=== PATIENT | female | born 1940 | race Caucasian/White ===

== ENCOUNTER 2018-03-17 08:33 | Inpatient (IN) ==
--- NOTE | 2018-03-02 08:15 | Anesthesiology Consultation ---
Date of Service March 02, 2018 Assessment & Plan (1) Encounter for pre-operative examination: Chart Review Chart Review: Acceptable Risk for Surgery and Patient NOT seen in Pre Admission Testing Per medical oncology, "she certainly has gone through surgeries before without any bleeding complications and from a hematologic perspective, she can safely proceed with her knee surgery without any special perioperative management." Consults Requested none History Surgery Operation Date: 03/17/18 12:50 Proposed Procedures p Right Total Knee Arthroplasty - Isiah Mason MD Height/Weight Height: 4 ft 11 in Weight: 68.039 kg Allergies Allergy/AdvReac Type Severity Reaction Status Date / Time No Known Allergies Allergy Verified 03/01/18 13:05 Medications Home Medications Medication Instructions Recorded Confirmed Last Taken amlodipine 5 mg PO QAM 03/01/18 03/01/18 Unknown aspirin 81 mg PO QAM 03/01/18 03/01/18 Unknown atorvastatin 30 mg PO PM 03/01/18 03/01/18 Unknown carvedilol 25 mg PO BID 03/01/18 03/01/18 Unknown citalopram 30 mg PO HS 03/01/18 03/01/18 Unknown hydrochlorothiazide 25 mg PO QAM 03/01/18 03/01/18 Unknown levothyroxine 88 mcg PO QAM 03/01/18 03/01/18 Unknown losartan 50 mg PO QAM 03/01/18 03/01/18 Unknown nitroglycerin 1 tab SUBLINGUAL DIRECTED PRN 03/01/18 03/01/18 Unknown Past Medical History Medical History Anxiety and depression Asthma Coagulopathy Hx of myocardial infarction 2015 - cardiac cath [facility]- failed - sent to [place] Had bypass done Hx of ventricular tachycardia 2017 - had cardiac ablation - [facility] Hyperlipidemia Hypertension Hypothyroidism On home oxygen therapy uses only at night Sleep apnea Past Surgical History Surgical History History of History of carpal tunnel release of both wrists Hx of arthroscopy of right knee had torn meniscus Hx of heart bypass surgery 2016 -quad bypass -4 vessel - [place] Hx of inguinal hernia repair Hx of lymph node excision x2 Social History Smoking Status: Never smoker Hx Alcohol Use: No Hx Substance Use: No Exercise / Class Metabolic Activity II 4-5 Yardwork/Stairs/Walk up hill Testing Electrocardiogram Date: 09/08/17 Findings: + NSR @ (85 bpm) nonspecific IVCD low voltage Laboratory Results Laboratory Tests 02/28/18 02/28/18 02/28/18 12:48 12:48 12:48 WBC 5.57 Hgb 11.4 L Plt Count 212 PT 10.1 INR 1.0 APTT 38.0 H Sodium 141 Potassium 3.6 Chloride 106 Carbon Dioxide 34 H BUN 24 H Creatinine 0.76 Glucose 96 Hemoglobin A1c 02/28/18 12:48 WBC Hgb Plt Count PT INR APTT Sodium Potassium Chloride Carbon Dioxide BUN Creatinine Glucose Hemoglobin A1c 6.2 H
--- NOTE | 2018-03-16 12:26 | History and Physical Report ---
DATE OF ADMISSION: 03/17/2018 CHIEF COMPLAINT: Right knee pain. HISTORY OF PRESENT ILLNESS: The patient is a 77-year-old female with known osteoarthritis about her right knee. She has had previous corticosteroid injections. She tries to watch her other [id number] medication use due to her cardiac medications. Due to ongoing pain and disability, she now desires to proceed with right total knee arthroplasty. PAST MEDICAL HISTORY: Coronary artery disease, hypertension, hypercholesterolemia, sleep apnea with O2 use at night, asthma, hypothyroidism, skin cancer. PAST SURGICAL HISTORY: , quadruple bypass, cardiac ablation, carpal tunnel, inguinal hernia. MEDICATIONS: Citalopram 20 mg 1 1/2 tablets daily, HCTZ 25 mg daily, Tirosint 88 mcg daily, Nitrostat 0.4 mg sublingual p.r.n. chest pain, atorvastatin 20 mg 1 1/2 daily, aspirin 81 mg daily, amlodipine daily, losartan daily, carvedilol twice daily. ALLERGIES: No known drug allergies. SOCIAL HISTORY AND REVIEW OF SYSTEMS: Noncontributory. PHYSICAL EXAMINATION: GENERAL: Well-nourished, well-developed elderly female who appears her stated age. HEENT: Normocephalic, atraumatic, extraocular movements intact, oropharynx pink and moist. NECK: Supple without adenopathy. LUNGS: Clear to auscultation bilaterally. HEART: Regular rate and rhythm. ABDOMEN: Soft, nontender, nondistended. EXTREMITIES: The upper extremity is within normal limits. The right knee has a varus alignment. Her range of motion is from 0-120 degrees. She has mild crepitus with range of motion. X-RAYS: X-rays were reviewed. She has a varus aligned knee. She has bone-on -bone arthritis of medial compartment with complete loss of joint space. There are medial joint line osteophytes. There are osteophytes about the patellofemoral joint as well. ASSESSMENT: Right knee degenerative joint disease. PLAN: Risks versus benefits were discussed, consent was obtained. The patient's primary care physician is Kendra SPIVEY from Dr. Rawls [facility] in [place]. Her trench pipe layer helper is Dr. Palencia in [place]. Will proceed with right total knee arthroplasty as indicated.
[~2018-03-17 08:33] MED LIST: ACETAMINOPHEN 500 MG TAB PO SCH; BUPIVACAINE 0.5 % 5 MG/1 ML PF 10ML VIAL ONE; CEFAZOLIN 1000MG 1,000 MG/7.5 ML SYR IV SCH; CeleBREX 200 MG CAP PO SCH; EPINEPHrine INJ 1 MG/ML AMP ONE; FAMOTIDINE 20 MG TAB PO SCH; GABAPENTIN 300 MG PO SCH; LR 15ML/HR IV SCH; METOCLOPRAMIDE HCL 10 MG TABLET PO SCH; OXYCODONE HCL 10 MG TABCR (OXYCONTIN) PO SCH; ROPIVACAINE 0.5% 5 MG/ML 30 ML VIAL ONE; ROPIVACAINE 0.5% HCL/PF 150 MG, BUPIVACAINE 0.5% MPF 30 ML, EPINEPHrine 30MG/30ML (OR U... INFIL SCH; dexAMETHasone 4 MG TAB PO SCH
--- NOTE | 2018-03-17 09:05 | History & Physical Bridge Note ---
Date of Service March 17, 2018 History & Physical Bridge Note I have examined the patient, reviewed the History & Physical and in the interval since the performance of the History & Physical I have noted the following changes of clinical significance: no changes noted
[2018-03-17] MEDS ORDERED: fentaNYL citrate 100 MCG/2 ML VIAL IV PRN (09:13)
[2018-03-17] MEDS ORDERED: LABETALOL HCL IV 5 MG/ML 20ML IV PRN (09:13)
[2018-03-17] MEDS ORDERED: PHENYLEPHRINE 100MCG/ML 5ML SYR IV PRN (09:13)
[2018-03-17] MEDS ORDERED: ATROPINE SULFATE 0.1 MG/ML 5ML SYR IV PRN (09:13)
[2018-03-17] MEDS ORDERED: MEPERIDINE HCL 25 MG/ML CARP IV PRN (09:13)
[2018-03-17] MEDS ORDERED: HYDROmorphone INJ 1 MG/ML SYRINGE IV PRN (09:13)
[2018-03-17] MEDS ORDERED: ePHEDrine sulfate 50 MG/ML AMP IV PRN (09:13)
[2018-03-17] MEDS ORDERED: ONDANSETRON INJ 2 MG/ML 2 ML VIAL IV PRN ×2 (09:13→13:09)
[2018-03-17 09:20] LABS: Partial Thromboplastin Ratio 1.4
[2018-03-17] MEDS ORDERED: MIDAZOLAM HCL 1 MG/ML 2ML VIAL ONE (09:34)
[2018-03-17] MEDS ORDERED: fentaNYL citrate 100 MCG/2 ML VIAL ONE (09:34)
[2018-03-17] MEDS ORDERED: BACITRACIN INJ 50,000 UNIT VIAL ONE (09:35)
[2018-03-17] MEDS ORDERED: ORTHO JOINT ANESTHETIC ONE (09:35)
[2018-03-17] MEDS ORDERED: POVIDONE-IODINE OP SOLN 30 ML BTL ONE (09:35)
[2018-03-17] MEDS ORDERED: LIDOCAINE HCL 2% 2 ML VIAL/AMP(20MG/ML) INFIL ONE (10:59)
[2018-03-17] MEDS ORDERED: PROPOFOL IV EMULSION 10 MG/ML 20 ML VIAL IV ONE (10:59)
--- NOTE | 2018-03-17 11:14 | Operative Report ---
Post Operative Report Date of Surgery March 17, 2018 Pre & Post Diagnosis Operation Date: 03/17/18 10:50 Pre-Op Diagnosis: Right Knee Osteoarthritis Post-Op Diagnosis: Right Knee Osteoarthritis Procedure Operation Date: 03/17/18 10:50 Actual Procedures p Right Total Knee Arthroplasty(Right) - Isiah Mason MD Surgeon Isiah Mason MD Chart Clerk Joanna Estimated Blood Loss 10 Findings Consistent with Post-Op Diagnosis Specimens Bone fragments Anesthesia Type Spinal Complications none Disposition Accompanied Patient To Recovery: No Disposition: Recovery Room Indications Knee pain Description of Procedure Patient's right leg was prepped and draped in the usual sterile manner. Limb was exsanguinated with an Esmarch bandage and tourniquet inflated to 300 mils of mercury. Longitudinal incision was made subcutaneous tissue sharply dissected lateral cartilages hemostasis. Medial parapatellar incision was made the patella was everted and the knee was a portion of the fat pad was removed to aid in visualization and the anterior and posterior cruciate ligaments were removed. The proximal tibia was osteotomized at the appropriate level using the oscillating saw. This bone fragment was removed. Next attention turned to the femur was drilled drill was used to get access to the canal. Flexible guide marvin was placed in the distal femoral cuts were made. The notch was cut using the appropriate guide and medial and lateral meniscal remnants were removed using sharp dissection. Trial femur was placed drill for the tip femoral pegs were produced and the tibia was subluxed anteriorly using blunt Hohmann. Proximal tibia was prepared using the drill and the bone tamp trial reduction was carried up to size 9 tibial poly-. Patella was prepared using a size 33 patella knee was taken through range of motion and the patella tracked nicely. All trial components removed the knee was thoroughly irrigated with pulsatile irrigation joint mix was injected and a Betadine soap was utilized from the ear irrigation carried out Hemovac drain was placed and was closed using #1 Vicryl 0 Dexon and is applied. Sterile dressing of Adaptic 4 x 4's sterile umbilicus applied. Was utilized for portion of the case including positioning prepping draping surgical assistance in wound closure and dressing application. I attest to the content of the Intraoperative Record and any orders documented therein. Any exceptions are noted below.
--- NOTE | 2018-03-17 12:16 | XRay Report ---
XR knee RT 2V routine CLINICAL HISTORY: 77 years-old Female presenting with postop. TECHNIQUE: Frontal and crosstable lateral views the right knee were obtained. COMPARISON: None. FINDINGS: Post surgical changes of total right knee arthroplasty with patellar resurfacing. Expected intra-angel cular and soft tissue emphysema. Osteopenia suspected. No periprosthetic fracture. No malalignment. S urgical drain in place. IMPRESSION: Expected postsurgical appearance status post total right knee arthroplasty with patellar resurfacing. Electronically signed by: Sergio Fry M.D. 03/17/2018 12:15 PM
--- NOTE | 2018-03-17 12:16 | Anesthesiology Progress Note ---
Date of Service March 17, 2018 Anesthesia Post Procedure Vital Signs Vital Signs: Temp Pulse Pulse Resp BP Pulse Ox 03/17/18 12:05 36.5 C 68 12 114/62 96 03/17/18 11:55 66 12 110/65 99 03/17/18 11:45 36.3 C L 71 16 109/56 L 99 03/17/18 09:27 36.8 C 66 20 134/67 97 Notes Mental Status: alert / awake / arousable Patient Amnestic to Procedure: Yes Nausea / Vomiting: adequately controlled Pain: adequately controlled Airway Patency, RR, SpO2: stable & adequate BP & HR: stable & adequate Hydration State: stable & adequate Neuraxial Anesthesia: was administered and sensory block is resolving Anesthetic Complications: no major complications apparent and Pt Satisfied with anesthetic care
[2018-03-17] MEDS ORDERED: MAGNESIUM HYDROXIDE SUSP 30 ML UDC PO PRN (13:09)
[2018-03-17] MEDS ORDERED: NITROGLYCERIN SL 0.4 MG/TAB TAB SL PRN (13:09)
[2018-03-17] MEDS ORDERED: ALUMINUM/MAGNESIUM SUSP 30 ML UDC PO PRN (13:09)
[2018-03-17] MEDS ORDERED: METOCLOPRAMIDE HCL INJ 5 MG/ML 2 ML VIAL IV PRN (13:09)
[2018-03-17] MEDS ORDERED: MoRPHine SULFATE 2 MG/ML CARP IV PRN (13:09)
--- NOTE | 2018-03-17 14:12 | Consultation ---
Date of Consultation March 17, 2018 Assessment & Plan (1) S/P total knee arthroplasty: - Continue pain control, dvt ppx, and bowel regimen per primary team - PT/OT consuls - Follow am cbc for hgb with acute blood loss - CM to assist with dc planning (2) Benign essential HTN: - Continue carvedilol 25 mg PO BID, HCTZ 245 mg daily, losartan 50 mg QAM , (3) HLD (hyperlipidemia): - Cont statin therapy (4) Hx of myocardial infarction: - Occurred in 2015, resolved. - S/p quadruple bypass surgery - Follows with Cardiology in [place] (5) History of quadruple bypass: (6) Ventricular tachycardia: - 2017 and now s/p cardiac ablation (7) H/O cardiac radiofrequency ablation: (8) Asthma: stable, - Wears 2 L via NC HS at baseline. (9) Hypothyroidism: - Cont levothyroxine 88 mcg daily (10) DVT prophylaxis: - teds, scds, aspirin 81 mg BID Supervising Physician Co-Signing Physician Notes Patient seen and examined, chart reviewed, case discussed with MAO Hanna and I agree with her assessment and plan as documented above. Briefly, patient is a 77yo female with history of CAD s/p CABG x 4v, VT s/p ablation, s/p right TKA performed today 03/17/18. Procedure well tolerated. Patient presently denies pain. She had some mild nausea which has resolved. She ambulated to the restroom with assistance without difficulty. Tolerated dinner. No additional complaints at this time. She has no CP, SOB, palpitations. Exam unremarkable. +S1/S2, regular, no m/r/g. Sensation of LE intact, 2+ pulses, 5+ strength Labs and images reviewed. Plan as above. History of Present Illness Reason for Consultation: Medical management Requesting Physician: Dr. Mason Attending Physician: Isiah Mason MD History of Present Illness This is a 77 yo F with PMHx of HTN, HLD, hx of MN in 2016 s/p cardiac cath and CABG, Vtach in 2017 s/p cardiac ablation, HLD, hypothyroidism, coagulopathy, asthma, THI on O2 HS, hypothyroidism, anxiety and depression who presented for elective R TKA by dr. Mason on 03/17/18. The patient was seen and examined and doing well currently, other than she feels groggy still. She has very mild pain coming back into the R knee, no numbness and tingling. She has not figured out her plan for outpatient PT after hospitalization. Allergies Allergy/AdvReac Type Severity Reaction Status Date / Time No Known Allergies Allergy Verified 03/17/18 09:05 Home Medications Home Medications Medication Instructions Recorded Confirmed Type amlodipine 5 mg PO QAM 03/01/18 03/17/18 History aspirin 81 mg PO QAM 03/01/18 03/17/18 History atorvastatin 30 mg PO PM 03/01/18 03/17/18 History carvedilol 25 mg PO BID 03/01/18 03/17/18 History citalopram 30 mg PO HS 03/01/18 03/17/18 History hydrochlorothiazide 25 mg PO QAM 03/01/18 03/17/18 History levothyroxine 88 mcg PO QAM 03/01/18 03/17/18 History losartan 50 mg PO QAM 03/01/18 03/17/18 History nitroglycerin 1 tab SUBLINGUAL DIRECTED PRN 03/01/18 03/17/18 History Patient History Medical History Hypothyroidism Asthma Ventricular tachycardia Hx of myocardial infarction HLD (hyperlipidemia) Benign essential HTN Anxiety and depression Asthma Coagulopathy Hx of myocardial infarction 2016 - [facility] - sent to [place] Had bypass done Hx of ventricular tachycardia 2017 - had cardiac ablation - [facility] Hyperlipidemia Hypertension Hypothyroidism On home oxygen therapy uses only at night Sleep apnea Surgical History History of quadruple bypass S/P total knee arthroplasty H/O cardiac radiofrequency ablation History of History of carpal tunnel release of both wrists Hx of arthroscopy of right knee had torn meniscus Hx of heart bypass surgery 2016 -quad bypass -4 vessel - [place] Hx of inguinal hernia repair Hx of lymph node excision x2 Social History Current Living Situation: Spouse Other Information That Helps Us Care for You: No Feels Safe at Home: Yes Safety Concerns: Feels Safe At This Time Smoking Status: Never smoker Hx Alcohol Use: No Hx Substance Use: No Beliefs That Will Affect Care: None Preferred Language: Danish Communication Ability: Effective Review of Systems Constitutional: No fever, sweats or chills, + fatigue Eyes: No diplopia, no worsening or blurred vision ENT: normal hearing, no trouble swallowing Respiratory: No cough, sputum, dyspnea at rest or on exertion Cardiovascular: No chest pain, tightness or palpitations Abdomen: No pain, nausea, vomiting, diarrhea or constipation Musculoskeletal: Minimal R knee pain, otherwise no joint pain, calf pain, swelling Neurologic: No weakness, numbness/tingling, or balance problems Psychiatric: No anxiety or depression Skin: No rash or itch Physical Exam 2 Vital Signs (Past 24 Hours): Last Vital Signs Temp 36.5 C 03/17/18 13:05 Pulse 66 03/17/18 13:31 Resp 18 03/17/18 13:31 BP 101/64 03/17/18 13:31 Pulse Ox 97 03/17/18 13:31 Physical Exam: General: awake, alert, no apparent distress, + obese Head: Normocephalic, atraumatic ENT: PERRL, EOMI, no pharyngeal exudate, mucous membranes moist Chest: Clear to auscultation, on 2L via NC, no adventitious breath sounds Cardiac: Regular rate and rhythm, no murmur, no JVD, normal peripheral pulses, good capillary refill Abdominal: NABS x 4 quadrants, soft, nontender to palpation, no rebound, guarding or tenderness Extremities: R knee with icepack on, dressing c/d/i, hemovac in place, otherwise normal inspection, no peripheral edema or erythema, calfs nontender to palpation Psych: Normal mood and affect Neuro: AAO x 3, strength intact bilaterally and related 5/5, no motor deficits, speech is clear, no peripheral sensory deficits
[2018-03-17] MEDS: KETOROLAC TROMETHAMINE 15 MG/ML VIAL IV SCH ×2 (16:32→21:45)
[2018-03-17] MEDS: SODIUM CHLORIDE 0.9% 1000ML 1,000 ML IV SCH (17:23)
[2018-03-17] MEDS: ACETAMINOPHEN 500 MG TAB PO SCH (17:39)
[2018-03-17] MEDS: FERROUS GLUCONATE 324 MG TAB PO SCH (17:39)
[2018-03-17] MEDS: CEFAZOLIN 1000MG 1,000 MG/7.5 ML SYR IV SCH (17:40)
[2018-03-17] MEDS: DOCUSATE SODIUM 100 MG CAP PO SCH (20:26)
[2018-03-17] MEDS: ATORVASTATIN 10 MG TAB PO SCH (20:26)
[2018-03-17] MEDS: CITALOPRAM 20 MG TAB PO SCH (20:26)
[2018-03-17] MEDS: ASPIRIN 81 MG ECTAB PO SCH (20:26)
[2018-03-17] MEDS: CARVEDILOL 25 MG TAB PO SCH (20:31)
[2018-03-18] MEDS: SODIUM CHLORIDE 0.9% 1000ML 1,000 ML IV SCH ×3 (00:12→20:28)
[2018-03-18] MEDS: ACETAMINOPHEN 500 MG TAB PO SCH ×3 (01:55→17:39)
[2018-03-18] MEDS: CEFAZOLIN 1000MG 1,000 MG/7.5 ML SYR IV SCH (01:56)
[2018-03-18] MEDS: KETOROLAC TROMETHAMINE 15 MG/ML VIAL IV SCH (04:12)
[2018-03-18] MEDS: LEVOTHYROXINE SODIUM 88 MCG TABLET PO SCH (05:40)
[2018-03-18 07:40] LABS: Hematocrit (blood only) 25.3 % (37-47); Hemoglobin 8.3 g/dL (12.0-16.0); Mean Corpuscular Hgb Conc 32.8 g/dL (32-36); Mean Corpuscular Volume 96.9 fL (80-100); Mean Platelet Volume 10.2 fL (7.4-10.4); Platelet Count 168 K/uL (130-400); RDW Coefficient of Variation 14.4 % (11.5-14.5); RDW Standard Deviation 51.4 fL (36.4-46.3); Red Blood Count 2.61 M/uL (4.2-5.4); White Blood Count 14.37 K/uL (4.8-10.8)
[2018-03-18] MEDS ORDERED: dexAMETHasone 10 MG in SYRINGE 0 ML IV SCH (08:00)
[2018-03-18 08:17] LABS: BUN Creatinine Ratio 26.8 (10-20); Calcium 7.9 mg/dl (8.5-10.1); Creatinine Clr Calc Pharmacy 26.7 ml/min; Est GFR (African American) 36.7; Est GFR (Non-African American) 31.7; Potassium 4.3 mmol/L (3.5-5.1)
[2018-03-18] MEDS: AMLODIPINE BESYLATE 5 MG TAB PO SCH (09:16)
[2018-03-18] MEDS: PANTOprazole 40 MG TAB PO SCH (09:18)
[2018-03-18] MEDS: FERROUS GLUCONATE 324 MG TAB PO SCH ×3 (09:18→17:39)
[2018-03-18] MEDS: ATORVASTATIN 10 MG TAB PO SCH (09:18)
[2018-03-18] MEDS: MULTIVITAMIN TAB PO SCH (09:18)
[2018-03-18] MEDS: CITALOPRAM 20 MG TAB PO SCH (09:18)
[2018-03-18] MEDS: LOSARTAN POTASSIUM 50 MG TAB PO SCH (09:18)
[2018-03-18] MEDS: CARVEDILOL 25 MG TAB PO SCH ×2 (09:19→21:36)
[2018-03-18] MEDS: hydroCHLOROthiazide 25 MG TAB PO SCH (09:19)
[2018-03-18] MEDS: DOCUSATE SODIUM 100 MG CAP PO SCH ×2 (09:20→21:35)
[2018-03-18] MEDS: ASPIRIN 81 MG ECTAB PO SCH ×2 (09:20→21:36)
--- NOTE | 2018-03-18 10:26 | Anesthesiology Progress Note ---
Date of Service March 18, 2018 Anesthesia Post Procedure Vital Signs Vital Signs: Temp Pulse Pulse Resp BP BP Pulse Ox 03/18/18 07:31 36.4 C L 74 16 118/78 94 03/18/18 03:09 36.4 C L 69 16 97/58 L 92 03/17/18 23:01 36.7 C 65 15 100/61 92 03/17/18 20:29 70 93/54 L 03/17/18 19:44 36.5 C 70 18 97/60 L 95 03/17/18 16:05 36.2 C L 65 18 92/56 L 97 03/17/18 15:09 36.6 C 68 17 95/56 L 98 03/17/18 14:14 66 18 97/59 L 99 03/17/18 13:31 66 18 101/64 97 03/17/18 13:05 36.5 C 71 18 111/67 97 03/17/18 12:50 68 16 92/55 L 97 03/17/18 12:35 65 14 104/55 L 95 03/17/18 12:25 63 12 110/56 L 96 03/17/18 12:15 65 14 107/64 98 03/17/18 12:05 36.5 C 68 12 114/62 96 03/17/18 11:55 66 12 110/65 99 03/17/18 11:45 36.3 C L 71 16 109/56 L 99 Notes Mental Status: alert / awake / arousable and participated in evaluation Patient Amnestic to Procedure: Yes Nausea / Vomiting: adequately controlled Pain: adequately controlled Airway Patency, RR, SpO2: stable & adequate BP & HR: stable & adequate Hydration State: stable & adequate Neuraxial Anesthesia: was administered and sensory block resolved Anesthetic Complications: no major complications apparent and Pt Satisfied with anesthetic care
--- NOTE | 2018-03-18 11:03 | Progress Note ---
DATE: 03/18/2018 SUBJECTIVE: The patient is postop day 1 status post right total knee arthroplasty. She is currently lying in bed and just finishing her breakfast. She has no overt complaints at this time and denies any shortness of breath, chest pain or lightheadedness. She denies calf tenderness. OBJECTIVE: Vital signs are stable and she is afebrile. Hemoglobin was noted to be 8.3 and her BUN and creatinine were increased to 42 and 1.58. Dressings were clean, dry and intact. Calves were soft, nontender. Neurovascular was intact. Toes were mobile. Thigh was soft and nontender. ASSESSMENT: 1. Postop day #1 status post right total knee arthroplasty. 2. Acute blood loss anemia. 3. Acute kidney injury. PLAN: Begin PT and OT protocols today. We will do DVT prophylaxis with aspirin p.o. b.i.d., SCDs and ESTEVAN hose. Continue pain management. Ketorolac has been discontinued and we will continue IV hydration and repeat hemoglobin this evening.
--- NOTE | 2018-03-18 13:35 | Hospitalist Progress Note ---
Date of Service March 18, 2018 Assessment & Plan (1) S/P total knee arthroplasty: - S/p total right knee arthroplasty on 03/17/2018, POD#1. - Pain control and DVT ppx per primary team. - PT/OT ordered. (2) Acute kidney injury: - Creatinine 1.58, likely pre-renal related to dehydration. Also in setting of acute blood loss anemia. - Will give NS at 100 cc/hr for 12 hour period; encouraged PO intake as well. - Monitor renal function qAM. (3) Chronic kidney disease, stage II (mild): - GFR ~75. - Avoid nephrotoxic agents. (4) Anemia: - Hemoglobin 8.3 this morning; may be related to blood loss during surgery vs other. Baseline hemoglobin Feb 2018 was ~11. - Repeat level ordered at 17:00. - Monitor CBC qAM. - Started Ferrous sulfate 325 mg TID; iron studies ordered on 03/19/18. (5) Leukocytosis: - WBC 14.37, likely steroid induced. - Monitor CBC qAM. (6) Hyperglycemia: - Hemoglobin A1C is 6.2. - Encouraged dietary changes and weight loss. - Will need to follow up with primary care provider after discharge. (7) Benign essential HTN: - Continue Carvedilol 25 mg PO BID, HCTZ 25 mg daily, Losartan 50 mg QAM, Amlodipine 5 mg QAM. - Was hypotensive on 03/17/18, now improving. Continue all meds as prescribed. (8) HLD (hyperlipidemia): - Continue Lipitor 30 mg as prescribed. (9) Hx of myocardial infarction: - Occurred in 2016, s/p quadruple bypass surgery. - Follows with cardiology in [place], [place]. - Continue beta mario alberto, aspirin, statin and NTG as prescribed. (10) History of quadruple bypass: - As noted above. 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 (13) Chronic diastolic heart failure: - Per cardiology reports, most recent TTE in 2015 showed EF 55-60%, grade I diastolic dysfunction. - Continue Coreg as prescribed. - Caution with continuous IV fluids. (14) Asthma: - Wears 2L via NC at night. - Has been stable on room air as inpt, will continue to monitor. (15) Hypothyroidism: - Continue Levothyroxine 88 mcg daily. (16) Depression: - Continue Citalopram 30 mg daily. (17) DVT prophylaxis: - SCDs, Aspirin 81 mg BID. Dispo: Will continue to follow, call with any questions. Supervising Physician Co-Signing Physician Notes [place] Supervision Note: I did not personally see or examine the patient today, but I verified all raman points of MAO Martin's assessment and plan with the following exceptions/ additions: None Subjective Ms. Kellogg is doing well today overall. She denies significant pain in right knee. Denies chest pain or shortness of breath. Last BM was prior to admission but PO intake has been poor. She has had very limited fluid intake, creatinine was increased over last 24 hours. Will give 12 hours of IV fluid hydration. Plan for PT/OT evaluation. Review of Systems All systems reviewed & are unremarkable except as noted in HPI & below Constitutional: no fever, no chills and no weakness Respiratory: no cough and no dyspnea Cardiovascular: no chest pain, no palpitations and no edema Gastrointestinal: + constipation; no abdominal pain, no nausea and no diarrhea/ loose stools Genitourinary (Female): no difficulty urinating Musculoskeletal: + joint pain (Right knee) Allergy / Immunological: no rash Physical Exam 2 Vital Signs (Past 24 Hours): Last Vital Signs Temp 36.6 C 03/18/18 12:43 Pulse 66 03/18/18 12:43 Resp 16 03/18/18 12:43 BP 106/66 03/18/18 12:43 Pulse Ox 95 03/18/18 12:43 Physical Exam: General: Resting comfortably in no apparent distress HEENT: NC/AT; PERRLA with EOMI; [place] conjunctiva, MMM. Neck: Supple and nontender Cardiac: RRR w/o murmurs, gallops or rubs; S1 and S2 Lungs: CTA bilaterally; No rhonchi, wheezing, or rales Abdomen: Bowel normoactive X 4; Nontender to palpation Extremities: Warm. Right knee with dressing in place. Neuro: No focal weakness Skin: No rash Results & Data Laboratory Results 03/18/18 03/18/18 Range/Units 07:20 07:20 WBC 14.37 H (4.8-10.8) K/uL RBC 2.61 L (4.2-5.4) M/uL Hgb 8.3 L (12.0-16.0) g/dL Hct 25.3 L (37-47) % MCV 96.9 (80-100) fL MCH 31.8 (25-34) pg MCHC 32.8 (32-36) g/dL RDW Std Deviation 51.4 H (36.4-46.3) fL RDW Coeff of Grzegorz 14.4 (11.5-14.5) % Plt Count 168 (130-400) K/uL MPV 10.2 (7.4-10.4) fL Sodium 138 (136-145) mmol/L Potassium 4.3 (3.5-5.1) mmol/L Chloride 106 (98-107) mmol/L Carbon Dioxide 27 (21-32) mmol/L Anion Gap 6.0 (3-11) BUN 42 H (7-18) mg/dl Creatinine 1.58 H (0.6-1.2) mg/dl Est Cr Clr Drug Dosing 26.7 ml/min Est GFR ( Amer) 36.7 Est GFR (Non-Af Amer) 31.7 BUN/Creatinine Ratio 26.8 H (10-20) Glucose 157 H (70-99) mg/dl Calcium 7.9 L (8.5-10.1) mg/dl
[2018-03-19] MEDS: ACETAMINOPHEN 500 MG TAB PO SCH ×3 (01:59→17:38)
[2018-03-19 05:51] LABS: Hematocrit (blood only) 21.2 % (37-47); Hemoglobin 7.1 g/dL (12.0-16.0); Mean Corpuscular Hgb Conc 33.5 g/dL (32-36); Mean Corpuscular Volume 94.6 fL (80-100); Mean Platelet Volume 9.6 fL (7.4-10.4); Platelet Count 137 K/uL (130-400); RDW Coefficient of Variation 14.7 % (11.5-14.5); RDW Standard Deviation 50.8 fL (36.4-46.3); Red Blood Count 2.24 M/uL (4.2-5.4)
[2018-03-19] MEDS ORDERED: DiphenhydrAMINE HCL 50 MG/ML VIAL IV SCH (06:00)
[2018-03-19] MEDS: OXYCODONE HCL IR 5 MG TAB (IMMEDIATE RELEASE) PO PRN ×3 (06:02→17:39)
[2018-03-19] MEDS: LEVOTHYROXINE SODIUM 88 MCG TABLET PO SCH (06:02)
[2018-03-19 06:25] LABS: BUN Creatinine Ratio 34.3 (10-20); Calcium 7.6 mg/dl (8.5-10.1); Creatinine Clr Calc Pharmacy 44.9 ml/min; Est GFR (African American) 68.8; Est GFR (Non-African American) 59.3; Potassium 3.7 mmol/L (3.5-5.1)
[2018-03-19 06:32] LABS: Ferritin 175.6 ng/ml (8-388)
[2018-03-19] MEDS ORDERED: FUROSEMIDE 20 MG in SYRINGE 0 ML IV SCH (08:00)
[2018-03-19] MEDS: DOCUSATE SODIUM 100 MG CAP PO SCH ×2 (08:29→21:30)
[2018-03-19] MEDS: FERROUS GLUCONATE 324 MG TAB PO SCH ×3 (08:29→17:38)
[2018-03-19] MEDS: AMLODIPINE BESYLATE 5 MG TAB PO SCH (08:30)
[2018-03-19] MEDS: PANTOprazole 40 MG TAB PO SCH (08:30)
[2018-03-19] MEDS: MULTIVITAMIN TAB PO SCH (08:30)
[2018-03-19] MEDS: CARVEDILOL 25 MG TAB PO SCH ×2 (08:30→21:30)
[2018-03-19] MEDS: LOSARTAN POTASSIUM 50 MG TAB PO SCH (08:30)
[2018-03-19] MEDS: ASPIRIN 81 MG ECTAB PO SCH ×2 (08:32→21:29)
[2018-03-19] MEDS: hydroCHLOROthiazide 25 MG TAB PO SCH (08:35)
--- NOTE | 2018-03-19 08:46 | Orthopedic Progress Note ---
Date of Service March 19, 2018 Assessment & Plan (1) Status post total knee replacement, right: Continue PT and OT protocols today. Patient continues to remain asymptomatic although anemic. I discussed the case with Dr. Stewart who will see the patient later this morning. Plans will be to transfuse 2 units of PRBCs. Continue DVT prophylaxis and pain management. Possible discharge to home after blood transfusion pending medical clearance. Patient seen and examined agree with above assessment and plan. Subjective Patient is postop day 2 status post right total knee arthroplasty. She developed acute blood loss anemia and hemoglobin was 8.3 yesterday. Repeat hemoglobin was 8.0 at 5 PM yesterday. This morning's hemoglobin dropped to 7.1. BUN and creatinine are ultimately better. Patient was standing up in the bathroom putting on her makeup this morning when I came into the room. She has no complaints at this time and denies shortness of breath, chest pain, lightheadedness. She denies feeling exhausted or cold. She denies nausea or vomiting. Physical Exam 2 Vital Signs (Past 24 Hours): Last Vital Signs Temp 37.0 C 03/19/18 06:15 Pulse 75 03/19/18 06:15 Resp 16 03/19/18 06:15 BP 131/72 03/19/18 06:15 Pulse Ox 94 03/19/18 06:15 Physical Exam: Patient is currently ambulating in the room. She sits down on the bed. Silverlon dressing is clean dry and intact. Calves are soft nontender. Neurovascular is intact. Results & Data Laboratory Results 03/19/18 03/19/18 03/18/18 Range/Units 05:34 05:34 16:54 WBC 10.10 (4.8-10.8) K/uL RBC 2.24 L (4.2-5.4) M/uL Hgb 7.1 L 8.0 L (12.0-16.0) g/dL Hct 21.2 L (37-47) % MCV 94.6 (80-100) fL MCH 31.7 (25-34) pg MCHC 33.5 (32-36) g/dL RDW Std Deviation 50.8 H (36.4-46.3) fL RDW Coeff of Grzegorz 14.7 H (11.5-14.5) % Plt Count 137 (130-400) K/uL MPV 9.6 (7.4-10.4) fL Sodium 142 (136-145) mmol/L Potassium 3.7 (3.5-5.1) mmol/L Chloride 111 H (98-107) mmol/L Carbon Dioxide 28 (21-32) mmol/L Anion Gap 3.0 (3-11) BUN 32 H (7-18) mg/dl Creatinine 0.94 D (0.6-1.2) mg/dl Est Cr Clr Drug Dosing 44.9 ml/min Est GFR ( Amer) 68.8 Est GFR (Non-Af Amer) 59.3 BUN/Creatinine Ratio 34.3 H (10-20) Glucose 109 H (70-99) mg/dl Calcium 7.6 L (8.5-10.1) mg/dl Iron 44 (35-150) mcg/dl TIBC 252 (250-450) mcg/dl Ferritin 175.6 (8-388) ng/ml Blood Type Antibody Screen Crossmatch 03/17/18 Range/Units 09:01 WBC (4.8-10.8) K/uL RBC (4.2-5.4) M/uL Hgb (12.0-16.0) g/dL Hct (37-47) % MCV (80-100) fL MCH (25-34) pg MCHC (32-36) g/dL RDW Std Deviation (36.4-46.3) fL RDW Coeff of Grzegorz (11.5-14.5) % Plt Count (130-400) K/uL MPV (7.4-10.4) fL Sodium (136-145) mmol/L Potassium (3.5-5.1) mmol/L Chloride (98-107) mmol/L Carbon Dioxide (21-32) mmol/L Anion Gap (3-11) BUN (7-18) mg/dl Creatinine (0.6-1.2) mg/dl Est Cr Clr Drug Dosing ml/min Est GFR ( Amer) Est GFR (Non-Af Amer) BUN/Creatinine Ratio (10-20) Glucose (70-99) mg/dl Calcium (8.5-10.1) mg/dl Iron (35-150) mcg/dl TIBC (250-450) mcg/dl Ferritin (8-388) ng/ml Blood Type O Positive Antibody Screen NEGATIVE Crossmatch See Detail
--- NOTE | 2018-03-19 13:51 | Hospitalist Progress Note ---
Date of Service March 19, 2018 Assessment & Plan (1) S/P total knee arthroplasty: - S/p total right knee arthroplasty on 03/17/2018, POD#1. - Pain control and DVT ppx per primary team. - PT/OT ordered. (2) Acute kidney injury: - Creatinine 1.58, likely pre-renal related to dehydration. Also in setting of acute blood loss anemia. - Will give NS at 100 cc/hr for 12 hour period; encouraged PO intake as well. - Monitor renal function qAM. (3) Chronic kidney disease, stage II (mild): - GFR ~75. - Avoid nephrotoxic agents. (4) Anemia: - Hemoglobin 8.3 this morning; may be related to blood loss during surgery vs other. Baseline hemoglobin Feb 2018 was ~11. - Repeat level ordered at 17:00. - Monitor CBC qAM. - Started Ferrous sulfate 325 mg TID; iron studies ordered on 03/19/18. (5) Leukocytosis: - WBC 14.37, likely steroid induced. - Monitor CBC qAM. (6) Hyperglycemia: - Hemoglobin A1C is 6.2. - Encouraged dietary changes and weight loss. - Will need to follow up with primary care provider after discharge. (7) Benign essential HTN: - Continue Carvedilol 25 mg PO BID, HCTZ 25 mg daily, Losartan 50 mg QAM, Amlodipine 5 mg QAM. - Was hypotensive on 03/17/18, now improving. Continue all meds as prescribed. (8) HLD (hyperlipidemia): - Continue Lipitor 30 mg as prescribed. (9) Hx of myocardial infarction: - Occurred in 2016, s/p quadruple bypass surgery. - Follows with cardiology in [place], [place]. - Continue beta mario alberto, aspirin, statin and NTG as prescribed. (10) History of quadruple bypass: - As noted above. 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 (13) Chronic diastolic heart failure: - Per cardiology reports, most recent TTE in 2015 showed EF 55-60%, grade I diastolic dysfunction. - Continue Coreg as prescribed. - Caution with continuous IV fluids. (14) Asthma: - Wears 2L via NC at night. - Has been stable on room air as inpt, will continue to monitor. (15) Hypothyroidism: - Continue Levothyroxine 88 mcg daily. (16) Depression: - Continue Citalopram 30 mg daily. (17) DVT prophylaxis: - SCDs, Aspirin 81 mg BID. Dispo: Will continue to follow, call with any questions. Supervising Physician Co-Signing Physician Notes [place] Supervision Note: I did not personally see or examine the patient today, but I verified all raman points of MAO Martin's assessment and plan with the following exceptions/ additions: It should be noted that the patient was evaluated by hematology for her elevated PTT prior to surgery. She had a mixing study which showed resolution of the elevated PTT suggestive of clotting factor deficiency, however follow on testing of clotting factor levels was completely normal. Therefore, it was considered that she had a spuriously elevated PTT and no further workup needed to be done. Subjective Pt. is doing well overall. She denies significant pain in the right knee. Hemoglobin decreased to 7.1 -- will transfuse 2 units pRBCs. She denies melena, hematochezia or h/o GI bleed. Pt. did have bleeding following prior CABG and required transfusion support. She also has prolonged PTT and has been evaluated by a associate civil engineer. Review of Systems All systems reviewed & are unremarkable except as noted in HPI & below Constitutional: no fever, no chills and no weakness Respiratory: no cough and no dyspnea Cardiovascular: + edema (Right leg); no chest pain and no palpitations Gastrointestinal: no abdominal pain, no nausea, no constipation, no blood in stools and no melena Genitourinary (Female): no difficulty urinating Musculoskeletal: + joint pain Allergy / Immunological: no rash Physical Exam 2 Vital Signs (Past 24 Hours): Last Vital Signs Temp 36.8 C 03/19/18 12:20 Pulse 68 03/19/18 12:20 Resp 17 03/19/18 12:20 BP 132/66 03/19/18 12:20 Pulse Ox 95 03/19/18 12:20 Physical Exam: General: Resting comfortably in no apparent distress HEENT: NC/AT; PERRLA with EOMI; [place] conjunctiva, MMM. Neck: Supple and nontender Cardiac: RRR w/o murmurs, gallops or rubs Lungs: CTA bilaterally; No rhonchi, wheezing, or rales Abdomen: Bowel normoactive X 4; Nontender to palpation Extremities: Warm. Right leg with mild edema, dressing in place. Neuro: No focal weakness Skin: No rash Results & Data Laboratory Results 03/19/18 03/19/18 03/18/18 Range/Units 05:34 05:34 16:54 WBC 10.10 (4.8-10.8) K/uL RBC 2.24 L (4.2-5.4) M/uL Hgb 7.1 L 8.0 L (12.0-16.0) g/dL Hct 21.2 L (37-47) % MCV 94.6 (80-100) fL MCH 31.7 (25-34) pg MCHC 33.5 (32-36) g/dL RDW Std Deviation 50.8 H (36.4-46.3) fL RDW Coeff of Grzegorz 14.7 H (11.5-14.5) % Plt Count 137 (130-400) K/uL MPV 9.6 (7.4-10.4) fL Sodium 142 (136-145) mmol/L Potassium 3.7 (3.5-5.1) mmol/L Chloride 111 H (98-107) mmol/L Carbon Dioxide 28 (21-32) mmol/L Anion Gap 3.0 (3-11) BUN 32 H (7-18) mg/dl Creatinine 0.94 D (0.6-1.2) mg/dl Est Cr Clr Drug Dosing 44.9 ml/min Est GFR ( Amer) 68.8 Est GFR (Non-Af Amer) 59.3 BUN/Creatinine Ratio 34.3 H (10-20) Glucose 109 H (70-99) mg/dl Calcium 7.6 L (8.5-10.1) mg/dl Iron 44 (35-150) mcg/dl TIBC 252 (250-450) mcg/dl Ferritin 175.6 (8-388) ng/ml Blood Type Antibody Screen Crossmatch 03/17/18 Range/Units 09:01 WBC (4.8-10.8) K/uL RBC (4.2-5.4) M/uL Hgb (12.0-16.0) g/dL Hct (37-47) % MCV (80-100) fL MCH (25-34) pg MCHC (32-36) g/dL RDW Std Deviation (36.4-46.3) fL RDW Coeff of Grzegorz (11.5-14.5) % Plt Count (130-400) K/uL MPV (7.4-10.4) fL Sodium (136-145) mmol/L Potassium (3.5-5.1) mmol/L Chloride (98-107) mmol/L Carbon Dioxide (21-32) mmol/L Anion Gap (3-11) BUN (7-18) mg/dl Creatinine (0.6-1.2) mg/dl Est Cr Clr Drug Dosing ml/min Est GFR ( Amer) Est GFR (Non-Af Amer) BUN/Creatinine Ratio (10-20) Glucose (70-99) mg/dl Calcium (8.5-10.1) mg/dl Iron (35-150) mcg/dl TIBC (250-450) mcg/dl Ferritin (8-388) ng/ml Blood Type O Positive Antibody Screen NEGATIVE Crossmatch See Detail
[2018-03-19 19:56] LABS: Hematocrit (blood only) 29.5 % (37-47)
[2018-03-19] MEDS: ATORVASTATIN 10 MG TAB PO SCH (21:29)
[2018-03-19] MEDS: CITALOPRAM 20 MG TAB PO SCH (21:31)
[2018-03-20] MEDS: OXYCODONE HCL IR 5 MG TAB (IMMEDIATE RELEASE) PO PRN ×2 (01:31→07:39)
[2018-03-20] MEDS: ACETAMINOPHEN 500 MG TAB PO SCH ×2 (01:32→09:32)
[2018-03-20 05:19] LABS: Basophils # (auto) 0.03 K/uL (0-0.2); Basophils % (auto) 0.3 %; Eosinophils # (auto) 0.12 K/uL (0-0.5); Eosinophils % (auto) 1.2 %; Hematocrit (blood only) 27.5 % (37-47); Hemoglobin 9.2 g/dL (12.0-16.0); Immature Granulocytes # (auto) 0.03 K/uL (0.00-0.02); Immature Granulocytes % (auto) 0.3 %; Lymphocytes # (auto) 2.74 K/uL (1.2-3.4); Lymphocytes % (auto) 27.8 %; Mean Corpuscular Hgb Conc 33.5 g/dL (32-36); Mean Corpuscular Volume 92.9 fL (80-100); Mean Platelet Volume 9.7 fL (7.4-10.4); Monocytes % (auto) 9.1 %; Neutrophils # (auto) 6.03 K/uL (1.4-6.5); Neutrophils % (auto) 61.3 %; Platelet Count 132 K/uL (130-400); RDW Coefficient of Variation 16.6 % (11.5-14.5); RDW Standard Deviation 56.1 fL (36.4-46.3); Red Blood Count 2.96 M/uL (4.2-5.4); White Blood Count 9.85 K/uL (4.8-10.8)
[2018-03-20 05:40] LABS: BUN Creatinine Ratio 33.2 (10-20); Calcium 7.8 mg/dl (8.5-10.1); Creatinine Clr Calc Pharmacy 49.6 ml/min; Est GFR (African American) 77.7; Potassium 3.7 mmol/L (3.5-5.1)
[2018-03-20] MEDS: LEVOTHYROXINE SODIUM 88 MCG TABLET PO SCH (06:38)
[2018-03-20] MEDS: FERROUS GLUCONATE 324 MG TAB PO SCH (07:39)
[2018-03-20] MEDS: DOCUSATE SODIUM 100 MG CAP PO SCH (07:40)
[2018-03-20] MEDS: hydroCHLOROthiazide 25 MG TAB PO SCH (07:41)
[2018-03-20] MEDS: AMLODIPINE BESYLATE 5 MG TAB PO SCH (07:41)
[2018-03-20] MEDS: MULTIVITAMIN TAB PO SCH (07:42)
[2018-03-20] MEDS: PANTOprazole 40 MG TAB PO SCH (07:42)
[2018-03-20] MEDS: LOSARTAN POTASSIUM 50 MG TAB PO SCH (07:42)
[2018-03-20] MEDS: ASPIRIN 81 MG ECTAB PO SCH (07:43)
[2018-03-20] MEDS: CARVEDILOL 25 MG TAB PO SCH (07:43)
--- NOTE | 2018-03-20 07:44 | Orthopedic Progress Note ---
Date of Service March 20, 2018 Assessment & Plan (1) Status post total knee replacement, right: Continue PT and OT protocols today. Continue DVT prophylaxis and pain management. Plan for discharge home if okay with medicine service. Patient seen and examined, agree with above assessment plan. Plan for discharge home today. Subjective Patient is postop day 3 status post right total knee arthroplasty. She was transfused 2 units PRBCs yesterday. Hemoglobin posttransfusion yesterday was 10.0. This morning it is down to 9.2. She has no new complaints. She denies shortness of breath, chest pain, lightheadedness. She denies abdominal pain. She is currently eating her breakfast. Physical Exam 2 Vital Signs (Past 24 Hours): Last Vital Signs Temp 36.7 C 03/20/18 06:15 Pulse 72 03/20/18 06:15 Resp 16 03/20/18 06:15 BP 133/74 03/20/18 06:15 Pulse Ox 92 03/20/18 06:15 Physical Exam: Silverlon dressing is clean, dry, and intact. Overt swelling of the knee and any swelling she does have is consistent with surgery. The swelling is not tense. Thigh is soft and nontender calves are soft and nontender. Abdomen is soft round and nontender.
--- NOTE | 2018-03-20 09:03 | Hospitalist Progress Note ---
Date of Service March 20, 2018 Assessment & Plan (1) S/P total knee arthroplasty: - S/p total right knee arthroplasty on 03/17/2018, POD#3. - Pain control and DVT ppx per primary team. - PT/OT ordered. (2) Acute kidney injury: - Creatinine now normalized after receiving IV fluids, likely pre-renal related to dehydration. Also in setting of acute blood loss anemia. (3) Chronic kidney disease, stage II (mild): - GFR ~75. - Avoid nephrotoxic agents. (4) Anemia: - Hemoglobin went down to 7.1 on postop day #2 from a baseline of 11, now improved to 9.2 after 2 units of PRBCs. This may be related to blood loss during surgery vs other. Baseline hemoglobin Feb 2018 was ~11. Stable for discharge to home, no evidence of ongoing bleeding (5) Leukocytosis: - WBC 14.37, likely steroid induced. - Monitor CBC qAM. Now resolved (6) Hyperglycemia: - Hemoglobin A1C is 6.2. - Encouraged dietary changes and weight loss. - Will need to follow up with primary care provider after discharge. (7) Benign essential HTN: - Continue Carvedilol 25 mg PO BID, HCTZ 25 mg daily, Losartan 50 mg QAM, Amlodipine 5 mg QAM. - Was hypotensive on 03/17/18, now improving. Continue all meds as prescribed. (8) HLD (hyperlipidemia): - Continue Lipitor 30 mg as prescribed. (9) Hx of myocardial infarction: - Occurred in 2016, s/p quadruple bypass surgery. - Follows with cardiology in [place], [place]. - Continue beta mario alberto, aspirin, statin and NTG as prescribed. (10) History of quadruple bypass: - As noted above. (11) H/O cardiac radiofrequency ablation: - As noted above. (12) Chronic diastolic heart failure: - Per cardiology reports, most recent TTE in 2016 showed EF 55-60%, grade I diastolic dysfunction. - Continue Coreg as prescribed. - Caution with continuous IV fluids. (13) Asthma: - Wears 2L via NC at night. - Has been stable on room air as inpt, will continue to monitor. (14) Hypothyroidism: - Continue Levothyroxine 88 mcg daily. (15) Depression: - Continue Citalopram 30 mg daily. 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 Dispo: Stable for discharge to home from a medical perspective Supervising Physician Co-Signing Physician Notes [place] Supervision Note: I did not personally see or examine the patient today, but I verified all raman points of MAO Martin's assessment and plan with the following exceptions/ additions: None Subjective Patient is doing well today, POD#3. She has mild pain in right knee. Pt. was working with PT, walking in halls this morning. Plan for home with outpatient therapy services. Hemoglobin dropped to 7.1 on 03/19/2018, now improved to 9.2 following 2 units pRBCs. No evidence of acute bleeding, including melena or hematochezia. Had 2 BMs yesterday, denies constipation. Review of Systems All systems reviewed & are unremarkable except as noted in HPI & below Constitutional: no fever, no chills and no weakness Respiratory: no cough and no dyspnea Cardiovascular: no chest pain, no palpitations and no edema Gastrointestinal: no abdominal pain, no nausea, no constipation and no diarrhea/ loose stools Genitourinary (Female): no difficulty urinating Musculoskeletal: + joint pain (Right knee ) Allergy / Immunological: no rash Physical Exam 2 Vital Signs (Past 24 Hours): Last Vital Signs Temp 36.7 C 03/20/18 06:15 Pulse 72 03/20/18 06:15 Resp 16 03/20/18 06:15 BP 133/74 03/20/18 06:15 Pulse Ox 92 03/20/18 06:15 Physical Exam: General: Resting comfortably in no apparent distress HEENT: NC/AT; PERRLA with EOMI; [place] conjunctiva, MMM. Neck: Supple and nontender Cardiac: RRR w/o murmurs, gallops or rubs Lungs: CTA bilaterally; No rhonchi, wheezing, or rales Abdomen: Bowel normoactive X 4; Nontender to palpation Extremities: Warm. Right leg with mild edema surrounding knee. Neuro: No focal weakness Skin: Ecchymosis noted along right lateral knee. Results & Data Laboratory Results 03/20/18 03/20/18 03/19/18 Range/Units 05:10 05:10 19:28 WBC 9.85 (4.8-10.8) K/uL RBC 2.96 L (4.2-5.4) M/uL Hgb 9.2 L 10.0 L (12.0-16.0) g/dL Hct 27.5 L 29.5 L (37-47) % MCV 92.9 (80-100) fL MCH 31.1 (25-34) pg MCHC 33.5 (32-36) g/dL RDW Std Deviation 56.1 H (36.4-46.3) fL RDW Coeff of Grzegorz 16.6 H (11.5-14.5) % Plt Count 132 (130-400) K/uL MPV 9.7 (7.4-10.4) fL Immature Gran % (Auto) 0.3 % Neut % (Auto) 61.3 % Lymph % (Auto) 27.8 % [place] % (Auto) 9.1 % Eos % (Auto) 1.2 % Baso % (Auto) 0.3 % Immature Gran # (Auto) 0.03 H (0.00-0.02) K/uL Neut # (Auto) 6.03 (1.4-6.5) K/uL Lymph # (Auto) 2.74 (1.2-3.4) K/uL [place] # (Auto) 0.90 H (0.11-0.59) K/uL Eos # (Auto) 0.12 (0-0.5) K/uL Baso # (Auto) 0.03 (0-0.2) K/uL Sodium 143 (136-145) mmol/L Potassium 3.7 (3.5-5.1) mmol/L Chloride 110 H (98-107) mmol/L Carbon Dioxide 31 (21-32) mmol/L Anion Gap 2.0 L (3-11) BUN 28 H (7-18) mg/dl Creatinine 0.85 (0.6-1.2) mg/dl Est Cr Clr Drug Dosing 49.6 ml/min Est GFR ( Amer) 77.7 Est GFR (Non-Af Amer) 67.0 BUN/Creatinine Ratio 33.2 H (10-20) Glucose 94 (70-99) mg/dl Calcium 7.8 L (8.5-10.1) mg/dl Blood Type Antibody Screen Crossmatch 03/17/18 Range/Units 09:01 WBC (4.8-10.8) K/uL RBC (4.2-5.4) M/uL Hgb (12.0-16.0) g/dL Hct (37-47) % MCV (80-100) fL MCH (25-34) pg MCHC (32-36) g/dL RDW Std Deviation (36.4-46.3) fL RDW Coeff of Grzegorz (11.5-14.5) % Plt Count (130-400) K/uL MPV (7.4-10.4) fL Immature Gran % (Auto) % Neut % (Auto) % Lymph % (Auto) % [place] % (Auto) % Eos % (Auto) % Baso % (Auto) % Immature Gran # (Auto) (0.00-0.02) K/uL Neut # (Auto) (1.4-6.5) K/uL Lymph # (Auto) (1.2-3.4) K/uL [place] # (Auto) (0.11-0.59) K/uL Eos # (Auto) (0-0.5) K/uL Baso # (Auto) (0-0.2) K/uL Sodium (136-145) mmol/L Potassium (3.5-5.1) mmol/L Chloride (98-107) mmol/L Carbon Dioxide (21-32) mmol/L Anion Gap (3-11) BUN (7-18) mg/dl Creatinine (0.6-1.2) mg/dl Est Cr Clr Drug Dosing ml/min Est GFR ( Amer) Est GFR (Non-Af Amer) BUN/Creatinine Ratio (10-20) Glucose (70-99) mg/dl Calcium (8.5-10.1) mg/dl Blood Type O Positive Antibody Screen NEGATIVE Crossmatch See Detail
--- NOTE | 2018-03-25 14:21 | Discharge Summary ---
CHIEF COMPLAINT: Right knee pain. Please see complete history and physical examination. HOSPITAL COURSE: Patient underwent right total knee arthroplasty without complication. She tolerated the procedure well and was discharged to recovery room in stable condition. Her postoperative course was relatively uneventful. Her postoperative pain was reasonably well controlled with a combination of spinal anesthesia, adductor canal block, intraoperative joint injection, IV and oral pain medications. She was started on aspirin for DVT prophylaxis. She also utilized ESTEVAN stockings and SCDs for additional prophylaxis. She was transfused 2 units of packed red cells for low H and H of 7.1 and 21.2. Her H and H responded appropriately and were 10.0 and 29.5 the next day. A medical consult was asked for to assist in her postoperative medical management. She did not have any significant postoperative medical issues. Her dressing and drain were discontinued by postoperative day 2. A new surgical dressing was applied and will remain in place for approximately 7 days postoperative. She tolerated postoperative physical therapy reasonably well where she was bending her knee and ambulating appropriately. She was discharged home on postop day #3. She will continue her physical therapy as an outpatient. She will continue her aspirin for DVT prophylaxis and follow up in our office in approximately 10-14 days for her initial postop evaluation.
== END 2018-03-20 10:53 | disposition home or self-care (01) | DRG 470 ==
LOC: ASU 08:33 → 3E 11:55